=== PATIENT | male | born 1960 | race Caucasian/White ===

== ENCOUNTER 2022-04-12 08:18 | Outpatient (RCR) | payer OTHER, SELFPAY ==
--- NOTE | 2022-04-12 09:53 | PTOPEVAL1 ---
Assessment and note entered by JT File, PT Evaluation Information Assessment Status Evaluation Diagnosis acute ischemic stroke Onset 04/05/22 Subjective Information patient reports he had 2 strokes last week. he reports he had a stroke night and saturday morning. he reports he is having deficits in coordination in the L LE and the L arm/hand. he reports he going to have occupational therapy evaluation tomorrow. he reports he had no had any falls. he reports he lives with his . he reports he is not back to driving. he reports he does not trust himself to hold objects in the R hand. he reports he does have pain in the L hand with gripping. Reported Pain Level Pain Score 0: Self Report Assessment PT Clinical Summary mr. armas presents to skilled PT services for evaluation and treatment of deficits in strength, coordination, balance, and functional activity performance after 2 strokes last week. he presents with deficits affecting the L LE and L UE. his Ue deficits will be addressed by OT. he would do well to attend and participate in skilled PT services to improve his objective/functional deficits and progress to full return to prior level activities and quality of life. Plan of Care Interventions Gait Training,Neuro Re-education,Patient/Caregiver Educati,Therapeutic Activities,Therapeutic Exercise PT Services Indicated Yes Treatment Frequency and 3x weekly for 12 visits Duration These treatments will address the objective and functional deficits as defined above. The patient will be advanced safely and appropriately in order for the patient to progress towards his/her prior level of function. Additional exercises will be introduced and as well as a comprehensive home exercise program upon discharge, if needed, ?to ensure carryover of functional gains achieved in the clinic. This treatment plan has been reviewed and agreement upon by the patient.
--- NOTE | 2022-04-13 14:10 | OTOPEVAL1 ---
Assessment and note entered by Carmen Massey OT Evaluation Information Assessment Status Evaluation Diagnosis CVA Onset 04/05/22 Reported Pain Level Pain Score 0: Self Report Assessment OT Clinical Summary The patient is a 61 year old male who was referred to outpatient OT due to a CVA resulting in L UE weakness and sensation deficits. The patient previously was independent with all self care tasks, demonstrated WNL hand sensation, fine motor coordination, UE strength, counseling specialist and pinch strength needed to perform all self care tasks and work activities. The patient now demonstrates severely impaired fine motor coordination of L hand, counseling specialist and pinch deficits, severely impaired sensation of light tough and discrimination, 4 to 4+/5 muscle strength of L UE that affect his ability to hold on to items during self care tasks , perform clothing fasteners, and perform work tasks. The patient requires the skills of OT to address deficits and return patient to prior level of independence. Plan of Care Interventions Therapeutic Exercise,Manual Therapy,Neuro Re- education,Therapeutic Activities,Hot Pack/Cold Pack,Electrical Stimulation,Self-Care/Home Management,Ultrasound OT Services Indicated Yes Treatment Frequency and 3x/week for 6 weeks Duration These treatments will address the objective and functional deficits as defined above. The patient will be advanced safely and appropriately in order for the patient to progress towards his/her prior level of function. Additional exercises will be introduced and as well as a comprehensive home exercise program upon discharge, if needed, ?to ensure carryover of functional gains achieved in the clinic. This treatment plan has been reviewed and agreement upon by the patient.
--- NOTE | 2022-05-08 08:53 | OTOPPROG ---
Assessment and note entered by Carmen Massey, OT Evaluation Information Assessment Status Progress Assessment OT Clinical Summary The patient demonstrates significant progress in pinch strength, soft touch sensation, UE strength, fine motor coordination and clothing fasteners affecting the patient's ability to perform self care tasks and work tasks using the small movements of the hand. The patient did not make progress in data management consultant strength and two point discrimination due to continued progress toward goals and complexity of improving the sensation of affected UE. The patient reports feeling stronger on L side and improvement in being able to feel with his L hand leading to decreased risk of dropping items during everyday activities. The patient has demonstrated good progress toward goals and demonstrates reasonable expectation for improvement. The patient continues to require the skills of a therapist to address sensation deficits, fine motor coordination, data management consultant/pinch strength, and fastening/unfastening clothing clasps. Plan of Care Interventions Therapeutic Exercise,Neuro Re-education, Therapeutic Activities,Electrical Stimulation,Self -Care/Home Management,Ultrasound OT Services Indicated Yes Treatment Frequency and 2x/week for 12 visits. Duration These treatments will address the objective and functional deficits as defined above. The patient will be advanced safely and appropriately in order for the patient to progress towards his/her prior level of function. Additional exercises will be introduced and as well as a comprehensive home exercise program upon discharge, if needed, ?to ensure carryover of functional gains achieved in the clinic. This treatment plan has been reviewed and agreement upon by the patient.
--- NOTE | 2022-05-08 09:51 | PTOPDC ---
Assessment and note entered by Aracelis uDdley, PT Evaluation Information Assessment Status Discharge Diagnosis acute ischemic stroke Onset 04/05/22 Subjective Information Yuriy reports he is doing well. He denies pain in the left LE and denies falls. He has been able to walk without limitations on level surfaces as well as uneven and inclined terrain while camping. He does not use an assistive device and reports no difficulty with stairs. He feels his balance and leg strength has improved a lot since initiating PT. Reported Pain Level Pain Score 0: Self Report Pain Score 0: Self Report Assessment PT Clinical Summary Yuriy Pleitez has completed 12 skilled PT visits following an acute ischemic stroke. He is reporting no difficulty with balance, walking on uneven and inclined terrain, stair negotiation, or endurance. He demonstrates good strength in bilateral LE's as well as improved times on the TUG test and 5 times sit to stand test. Scores on standardized balance assessments indicate he is a low fall risk and he was able to ambulate 1,075 feet in 6 minutes without an AD and no breaks needed. It is recommended he be discharged from skilled PT at this time. Plan of Care Interventions Self-Care/Home Management
--- NOTE | 2022-06-12 10:05 | OTOPDC ---
Assessment and note entered by Carmen Massey, OT Evaluation Information Assessment Status Discharge Subjective Information The patient reports he feels much stronger at the time of discharge and that he is able to perform dressing fasteners easier since the start of therapy. Reported Pain Level Pain Score 0: Self Report Assessment OT Clinical Summary The patient demonstrates significant progress in labor and employment paralegal strength, pinch strength, fastening dressing closures, and fine motor coordination leading to patient's improvement in self care tasks and ability to manipulate objects for leisure activities. The patient did not make progress in sensation deficits due to continued effects from the stroke. The patient's maximally impaired sensation could result in safety concerns with patient educated to be aware around hot/cold temperatures. The patient demonstrates good overall function of L UE and has been educated on UE HEP using strong resistance band to maintain UE strength, for putty exercises using strong (green ) theraputty, and fine motor coordination activities to continue to make progress with coordination of UE. The patient was educated on stroke prognosis and encouraged to continue to work toward improved function of UE as patient can continue to progress. The patient no longer requires skilled OT to address deficits, to continue with UE HEP. Plan of Care OT Services Indicated No
== END 2022-06-12 13:19 | disposition home or self-care (01) ==
LOC: CHSPT 08:18
PROVIDERS: PCP Family Medicine; Referring Provider Family Medicine
DX: R29.898 Other symptoms and signs involving the musculoskeletal system (principal)
CPT/HCPCS: 97110; 97112; 97161; 97165; 97530